=== PATIENT | male | born 1995 | race Caucasian/White ===

== ENCOUNTER 2017-07-25 17:30 | Emergency (ER) | payer OTHER ==
[~2017-07-25] VITALS: Ht 182.9 cm; Wt 83.5 kg
[2017-07-25 17:37] VITALS: TEMP 36.7; Ht 182.9 cm; Wt 83.5 kg
[2017-07-25 19:02] LABS: BASO % 0.5 %; BASO ABS # 0.02 K/uL (0-0.2); COMPLETE YES; EOS % 4.5 %; HEMATOCRIT 45.9 % (42-52); LYMPH % 37.4 %; LYMPH ABS # 1.48 K/uL (1.2-3.4); MEAN CELL VOLUME 89.5 fL (80-100); MEAN CORPUSCULAR HEMOGLOBIN 31.8 pg (25-34); MEAN CORPUSCULAR HGB CONC 35.5 g/dl (32-36); MEAN PLATELET VOLUME 10.6 fL (7.4-10.4); MONO % 13.6 %; PLATELET COUNT 192 K/uL (130-400); RED BLOOD COUNT 5.13 M/uL (4.7-6.1); WHITE BLOOD COUNT 3.96 K/uL (4.8-10.8)
[2017-07-25 19:06] VITALS: BP 132/74; PULSE 84; O2SAT 98
[2017-07-25 19:07] LABS: URINE APPEARANCE CLEAR (CLEAR); URINE BILIRUBIN NEG (NEG); URINE COLOR YELLOW; URINE NITRITE NEG (NEG); URINE PH 6.5 (4.5-7.5); URINE SPECIFIC GRAVITY 1.018 (1.000-1.030); UROBILINOGEN NEG (NEG)
[2017-07-25 19:10] LABS: ALT/SGPT 35 U/L (12-78); AST/SGOT 21 U/L (15-37); BLOOD UREA NITROGEN 14 mg/dl (7-18); BUN/CREATININE RATIO 13.1 (10-20); CARBON DIOXIDE 31 mmol/L (21-32); CHLORIDE 103 mmol/L (98-107); GLUCOSE 73 mg/dl (70-99); POTASSIUM 3.7 mmol/L (3.5-5.1); SODIUM 140 mmol/L (136-145)
[2017-07-25 19:13] LABS: ALKALINE PHOSPHATASE 80 U/L (45-117)
--- NOTE | 2017-07-25 19:13 | DIAGNOSTIC IMAGING REPORT ---
RIGHT WRIST MIN 3 VIEWS ROUTINE CLINICAL HISTORY: distal ulnar pain eval for fx Right COMPARISON: None. DISCUSSION: The bones and joint spaces appear intact. There is no evidence of fracture, dislocation or bony disease. There is no evidence for soft tissue swelling. IMPRESSION: Negative study. The above report was generated using voice recognition software. It may contain grammatical, syntax or spelling errors. Electronically signed by: Ozzy Petersen M.D. 07/25/2017 7:11 PM Dictated Date/Time: 07/25/2017 7:10 PM
--- NOTE | 2017-07-25 19:13 | DIAGNOSTIC IMAGING REPORT ---
ABDOMEN 2VIEW W/PA CHEST RTN CLINICAL HISTORY: eval for stone/constipation COMPARISON STUDY: No previous studies for comparison. FINDINGS: The soft tissues, psoas shadows, renal outlines and intestinal gas pattern appear normal. There is no evidence for bowel obstruction. There is no evidence for free intraperitoneal air. No abnormal abdominal calcifications are seen. A frontal view of the chest was performed and is unremarkable. IMPRESSION: Normal study. The above report was generated using voice recognition software. It may contain grammatical, syntax or spelling errors. Electronically signed by: Ozzy Petersen M.D. 07/25/2017 7:12 PM Dictated Date/Time: 07/25/2017 7:11 PM
[2017-07-25 19:14] LABS: MANUAL MICROSCOPIC REQUIRED? NO; REVIEW REQ? NO
--- NOTE | 2017-07-26 00:11 | EMERGENCY ROOM VISIT NOTE ---
History Report prepared by Nat: Jose Daniel Velasquez Under the Supervision of: Dr. Antoine Resendiz M.D. First contact with patient: 18:22 Chief Complaint: ABDOMINAL PAIN Stated Complaint: PAIN ON RIGHT ABD ,WRIST,ELBOW,ELBOW,SHOULDER Nursing Triage Summary: Abd pain started a few days ago with constipation. Right arm pain, has always had pain due to an injury approx 7 years ago and now feels it is back and getting worse. History of Present Illness The patient is a 22 year old male who presents to the Emergency Room with complaints of constant right sided mid abdominal pain for the past 4-5 days. The patient states that the pain is worsened when sitting in his car or when he sleeps on his right side. The patient denies any back pain, fever, vomiting, or diarrhea, though he states that he has been constipated for the past 3-4 days. He states that he has been eating more pasta and smoothies recently, and eating less meat. The patient additionally is complaining of right hand and wrist pain rating into his shoulder for the past month. He states that 8 years ago he punched something metal, and he broke his hand, and he was in a splint up to his elbow. The patient states that he does not have any swelling to the arm, and he denies any chest pain, shortness of breath, or urinary symptoms. He states that he uses his right arm a lot because he is right handed. He denies any recent injury to the arm. Source of History: patient Onset: 4-5 days ago Position: abdomen (right sided) Quality: other ("Discomforting") Timing: constant Modifying Factors (Worsening): other (sitting in his car for a long time and sleeping on his right side) Associated Symptoms: No fevers, No chest pain, No SOB, No vomiting, No back pain, No diarrhea, No urinary symptoms Note: Associated symptoms: Right hand, wrist, elbow, and shoulder pain Review of Systems See HPI for pertinent positives & negatives. A total of 10 systems reviewed and were otherwise negative. Past Medical & Surgical Medical Problems: (1) Hand fracture, right Social History Smoking Status: Never Smoker Marital Status: single Occupation Status: [employer] student Current/Historical Medications No Active Prescriptions or Reported Meds Allergies Coded Allergies: No Known Allergies (Unverified , 07/25/17) Physical Exam Vital Signs Date Time Temp Pulse Resp B/P (MAP) Pulse Ox O2 Delivery O2 Flow Rate FiO2 07/25/17 19:06 84 16 132/74 98 Room Air 07/25/17 17:37 36.7 99 16 150/71 100 Room Air Physical Exam Constitutional: Vital signs reviewed. Eyes: Pupils are equal round reactive to light. Conjunctiva are noninjected. ENT: Pharynx is clear without erythema or exudate. Mucous membranes are moist. Neck supple without meningeal signs. Respiratory: Clear to auscultation bilaterally. Breath sounds are equal bilaterally. Cardiovascular: Regular rate and rhythm. No rubs or gallops. GI: Soft, nondistended and nontender. Bowel sounds are present. No CVA tenderness. Musculoskeletal: Isolated tenderness to the right distal ulna without any tenderness to the hand or proximally, including the shoulder. Integumentary: No cyanosis. Neurological: The patient is awake and alert. No focal deficits. Psychiatric: Normal affect. Medical Decision & Procedures ER Provider Diagnostic Interpretation: Radiology results as stated below per my review and the radiologist's interpretation: RIGHT WRIST MIN 3 VIEWS ROUTINE CLINICAL HISTORY: distal ulnar pain eval for fx Right COMPARISON: None. DISCUSSION: The bones and joint spaces appear intact. There is no evidence of fracture, dislocation or bony disease. There is no evidence for soft tissue swelling. IMPRESSION: Negative study. The above report was generated using voice recognition software. It may contain grammatical, syntax or spelling errors. Electronically signed by: Ozzy Petersen M.D. 07/25/2017 7:11 PM ABDOMEN 2VIEW W/PA CHEST RTN CLINICAL HISTORY: eval for stone/constipation COMPARISON STUDY: No previous studies for comparison. FINDINGS: The soft tissues, psoas shadows, renal outlines and intestinal gas pattern appear normal. There is no evidence for bowel obstruction. There is no evidence for free intraperitoneal air. No abnormal abdominal calcifications are seen. A frontal view of the chest was performed and is unremarkable. IMPRESSION: Normal study. The above report was generated using voice recognition software. It may contain grammatical, syntax or spelling errors. Electronically signed by: Ozzy Petersen M.D. 07/25/2017 7:12 PM Dictated Date/Time: 07/25/2017 7:11 PM Laboratory Results 07/25/17 18:15 Red Blood Count 5.13, Mean Corpuscular Volume 89.5, Mean Corpuscular Hemoglobin 31.8, Mean Corpuscular Hemoglobin Concent 35.5, Mean Platelet Volume 10.6, Neutrophils (%) (Auto) 44.0, Lymphocytes (%) (Auto) 37.4, Monocytes (%) (Auto) 13.6, Eosinophils (%) (Auto) 4.5, Basophils (%) (Auto) 0.5, Neutrophils # (Auto ) 1.74, Lymphocytes # (Auto) 1.48, Monocytes # (Auto) 0.54, Eosinophils # (Auto ) 0.18, Basophils # (Auto) 0.02 07/25/17 18:15 Test 07/25/17 18:15 07/25/17 18:45 White Blood Count 3.96 K/uL (4.8-10.8) Red Blood Count 5.13 M/uL (4.7-6.1) Hemoglobin 16.3 g/dL (14.0-18.0) Hematocrit 45.9 % (42-52) Mean Corpuscular Volume 89.5 fL (80-100) Mean Corpuscular Hemoglobin 31.8 pg (25-34) Mean Corpuscular Hemoglobin Concent 35.5 g/dl (32-36) Platelet Count 192 K/uL (130-400) Mean Platelet Volume 10.6 fL (7.4-10.4) Neutrophils (%) (Auto) 44.0 % Lymphocytes (%) (Auto) 37.4 % Monocytes (%) (Auto) 13.6 % Eosinophils (%) (Auto) 4.5 % Basophils (%) (Auto) 0.5 % Neutrophils # (Auto) 1.74 K/uL (1.4-6.5) Lymphocytes # (Auto) 1.48 K/uL (1.2-3.4) Monocytes # (Auto) 0.54 K/uL (0.11-0.59) Eosinophils # (Auto) 0.18 K/uL (0-0.5) Basophils # (Auto) 0.02 K/uL (0-0.2) RDW Standard Deviation 38.7 fL (36.4-46.3) RDW Coefficient of Variation 11.9 % (11.5-14.5) Immature Granulocyte % (Auto) 0.0 % Immature Granulocyte # (Auto) 0.00 K/uL (0.00-0.02) Anion Gap 6.0 mmol/L (3-11) Est Creatinine Clear Calc Drug Dose 116.6 ml/min Estimated GFR () 110.6 Estimated GFR (Non- 95.5 BUN/Creatinine Ratio 13.1 (10-20) Calcium Level 9.0 mg/dl (8.5-10.1) Total Bilirubin 0.4 mg/dl (0.2-1) Direct Bilirubin < 0.1 mg/dl (0-0.2) Aspartate Amino Transf (AST/SGOT) 21 U/L (15-37) Alanine Aminotransferase (ALT/SGPT) 35 U/L (12-78) Alkaline Phosphatase 80 U/L (45-117) Total Protein 7.6 gm/dl (6.4-8.2) Albumin 4.1 gm/dl (3.4-5.0) Lipase 86 U/L (73-393) Urine Color YELLOW Urine Appearance CLEAR (CLEAR) Urine pH 6.5 (4.5-7.5) Urine Specific [place] 1.018 (1.000-1.030) Urine Protein NEG (NEG) Urine Glucose (UA) NEG (NEG) Urine Ketones NEG (NEG) Urine Occult Blood NEG (NEG) Urine Nitrite NEG (NEG) Urine Bilirubin NEG (NEG) Urine Urobilinogen NEG (NEG) Urine Leukocyte Esterase NEG (NEG) Laboratory results as reviewed by me. ED Course 1821: The patient was evaluated in room C1. A complete history and physical exam was performed. 1911: I discussed the test results with the patient, and he is going to follow up with [facility] and Orthopedics. The patient was discharged home Medical Decision This is a 22-year-old male presents with right-sided abdominal pain and right arm pain. Differential diagnosis includes kidney stone, constipation, fecal impaction, irritable bowel syndrome, inflammatory bowel disease, strain. I did perform a limited focused review of portions of the patient's old chart on the electronic medical record. The patient has had no recent pertinent visits to this hospital. I did evaluate the patient as noted above. The patient is presenting with right -sided abdominal pain for the past 4-5 days. On examination, however, he has no tenderness to palpation. He also denies any fever or vomiting. He does state he has been constipated. He also complains of pain to his right wrist for the past month. He did injure it 8 years ago and states it has been acting up. He denies reinjury recently. He does have tenderness to his distal ulna. IV access was established. I did order and personally review the patient's abdomen and wrist x-rays as described above. There is no evidence of acute fracture or dislocation. The abdominal x-rays demonstrate constipation over the right side of his abdomen where he is having pain. I did order and review the patient's blood work as noted in the electronic medical record. His white blood cell count is not elevated. It is actually slightly low. His urine analysis is negative. I did discuss the test results with the patient. I did recommend close follow up with [facility] for further evaluation. He was advised to use MiraLAX to help with his constipation. He was told to return should he develop any worsening symptoms or new symptoms such as tenderness, fever or vomiting. He was also advised to have his white blood cell count rechecked. He was discharged in good condition with a wrist lacer for his right wrist and will follow with orthopedics. Medication Reconcilliation Current Medication List: was personally reviewed by me Blood Pressure Screening Patient's blood pressure: Elevated blood pressure Blood pressure disposition: Elevated BP felt to be situational Impression Primary Impression: Right sided abdominal pain Additional Impressions: Constipation Right wrist pain Leukopenia Scribe Attestation The scribe's documentation has been prepared under my direct and personally reviewed by me in its entirety. I confirm that the note above accurately reflects all work, treatment, procedures, and medical decision making performed by me. Departure Information Dispostion Home / Self-Care Prescriptions No Active Prescriptions or Reported Meds Referrals No Doctor, Assigned (PCP) Forms HOME CARE DOCUMENTATION FORM, IMPORTANT VISIT INFORMATION Patient Instructions ED Abdominal Pain Unkn Cause Male, My [facility] Additional Instructions You have been examined and treated today on an emergency basis only. This is not a substitute for, or an effort to provide, complete comprehensive medical care. It is impossible to recognize and treat all injuries or illnesses in a single emergency department visit. It is therefore important that you follow up closely with [facility] and an orthopedic doctor. Call as soon as possible for an appointment. Return for worsening symptoms or if you develop fever, vomiting, or any other concerning symptoms. Have your white blood cell count repeated as it was slightly low today. Use MiraLAX [id number] to help with your constipation. Problem Qualifiers Additional Impressions: Constipation Constipation type: unspecified constipation type Qualified Codes: K59.00 - Constipation, unspecified Leukopenia Leukopenia type: unspecified Qualified Codes: D72.819 - Decreased white blood cell count, unspecified
== END 2017-07-25 19:33 | disposition home or self-care (01) ==
LOC: C.EDB 17:35 → C.EDC 19:33
DX: R10.9 Unspecified abdominal pain (principal); K59.00 Constipation, unspecified; M25.531 Pain in right wrist; D72.819 Decreased white blood cell count, unspecified; Z87.81 Personal history of (healed) traumatic fracture

== ENCOUNTER → 2018-02-04 | Outpatient (CLI) | payer OTHER | END | disposition home or self-care (01) | LOC: C.LAB 03:30 | DX: Z02.83 Encounter for blood-alcohol and blood-drug test (principal) ==

== ENCOUNTER → 2018-03-24 | Outpatient (CLI) | payer OTHER ==
[2018-03-24 17:39] LABS: HEMATOCRIT 47.8 % (42-52); HEMOGLOBIN 17.1 g/dL (14.0-18.0); MEAN CELL VOLUME 87.9 fL (80-100); MEAN CORPUSCULAR HEMOGLOBIN 31.4 pg (25-34); MEAN CORPUSCULAR HGB CONC 35.8 g/dl (32-36); PLATELET COUNT 185 K/uL (130-400); RED CELL DISTRIBUTION WIDTH CV 12.3 % (11.5-14.5); RED CELL DISTRIBUTION WIDTH SD 39.1 fL (36.4-46.3); WHITE BLOOD COUNT 6.18 K/uL (4.8-10.8)
[2018-03-24 18:13] LABS: ALBUMIN 4.5 gm/dl (3.4-5.0); ALT/SGPT 28 U/L (12-78); AST/SGOT 21 U/L (15-37); BLOOD UREA NITROGEN 12 mg/dl (7-18); CARBON DIOXIDE 31 mmol/L (21-32); CHOLESTEROL 149 mg/dl (0-200); CREATININE 1.15 mg/dl (0.60-1.40); GLUCOSE 84 mg/dl (70-99); SODIUM 138 mmol/L (136-145)
[2018-03-24 18:16] LABS: ALKALINE PHOSPHATASE 70 U/L (45-117); LDL CHOLESTEROL CALCULATED 83 mg/dl; TOTAL PROTEIN 8.1 gm/dl (6.4-8.2)
== END | disposition home or self-care (01) ==
LOC: C.LAB1850 16:59
PROVIDERS: ATTEND Internal Medicine
DX: Z00.00 Encounter for general adult medical examination without abnormal findings (principal); L29.0 Pruritus ani